=== PATIENT | male | born 1960 | race Caucasian/White ===

== ENCOUNTER → 2018-09-21 08:42 | Outpatient (CLI) | payer OTHER, SELFPAY ==
[2018-09-21 09:47] LABS: Add Manual Diff / Slide Review NO; Basophils Percent Auto 0.4 % (0-2); Eosinophils Percent Auto 4.2 % (2-4); Hematocrit 47.5 % (41-53); Hemoglobin 16.3 g/dL (13.5-17.5); Lymphocytes Percent Auto 21.8 % (25-40); Mean Corpuscular HGB Conc 34.4 % (30-36); Mean Corpuscular Hemoglobin 31.1 PG (26-34); Mean Corpuscular Volume 90.5 fL (80-100); Monocytes Percent Auto 15.2 % (3-14); Neutrophils Absolute Auto 3400 /uL (1500-7000); Neutrophils Percent Auto 58.4 % (50-75); Platelet Count 217 X10^3/uL (150-400); Red Blood Cell Count 5.25 X10^6/uL (4.5-5.9); Red Cell Distribution Width 14.2 % (11.6-14.8); White Blood Cell Count 5.9 X10^3/uL (4.5-11.0)
[2018-09-21 10:05] LABS: Alanine Aminotransferase 59 IU/L (21-72); Albumin 4.2 g/dL (3.5-5.0); Albumin Globulin Ratio 1.6 (1.0-2.8); Alkaline Phosphatase 79 U/L (38-126); Aspartate Aminotransferase 37 IU/L (17-59); Bilirubin Total 0.6 mg/dL (0.2-1.3); Blood Urea Nitrogen 20 mg/dL (9-20); Calcium 9.2 mg/dL (8.4-10.2); Carbon Dioxide 29 mmol/L (22-32); Chloride 101 mmol/L (98-107); Estimated Glomerular Filt Rate > 60.0 mL/min (>60); Globulin 2.6 g/dL (1.7-4.1); Glucose 102 mg/dL (80-110); HEMOLYSIS < 15 (0-50); Potassium 3.2 mmol/L (3.4-5.1); Sodium 144 mmol/L (137-145); Total Protein 6.8 g/dL (6.3-8.2); Uric Acid 3.9 mg/dL (3.5-8.5)
[2018-09-21 10:11] LABS: Erythrocyte Sedimentation Rate 1 MM/HR (0-15)
[2018-09-21 10:15] LABS: C-Reactive Protein Quant < 0.5 mg/dL (<1.0)
== END ==
PROVIDERS: Family Provider Specialist/Technologist Athletic Trainer; PCP Internal Medicine; Visit Provider Urology
DX: Z12.5 Encounter for screening for malignant neoplasm of prostate (principal); M10.9 Gout, unspecified
CPT/HCPCS: 36415; 80053; 84153; 84550; 85025; 85651; 86140

== ENCOUNTER → 2019-12-16 13:39 | Outpatient (CLI) | payer OTHER, SELFPAY ==
[2019-12-17 10:09] LABS: PSA Free % 31.1 % (.); PSA, Total 3.6 ng/mL (0.0-4.0)
== END ==
PROVIDERS: Family Provider Specialist/Technologist Athletic Trainer; Referring Provider Urology; Visit Provider Urology
DX: R97.20 Elevated prostate specific antigen [PSA] (principal)
CPT/HCPCS: 36415; 84153; 84154

== ENCOUNTER → 2020-06-09 11:05 | Outpatient (CLI) | payer OTHER, SELFPAY ==
[2020-06-09 12:28] LABS: Erythrocyte Sedimentation Rate 1 MM/HR (0-15)
[2020-06-09 13:08] LABS: Uric Acid 6.8 mg/dL (3.5-8.5)
[2020-06-09 13:11] LABS: C-Reactive Protein Quant < 0.5 mg/dL (<1.0)
== END ==
PROVIDERS: Family Provider Specialist/Technologist Athletic Trainer; PCP Internal Medicine; Referring Provider Physician Assistant Medical; Visit Provider Physician Assistant Medical
DX: M10.9 Gout, unspecified (principal)
CPT/HCPCS: 36415; 84550; 85651; 86140

== ENCOUNTER → 2021-01-09 09:37 | Outpatient (CLI) | payer OTHER, SELFPAY ==
[2021-01-10 14:12] LABS: PSA Free % 20.7 % (.); PSA, Total 5.4 ng/mL (0.0-4.0)
== END ==
PROVIDERS: Family Provider Specialist/Technologist Athletic Trainer; PCP Internal Medicine; Referring Provider Urology; Visit Provider Urology
DX: R97.20 Elevated prostate specific antigen [PSA] (principal)
CPT/HCPCS: 36415; 84153; 84154

== ENCOUNTER → 2021-06-07 11:50 | Outpatient (CLI) | payer OTHER, SELFPAY ==
[2021-06-07 12:51] LABS: Cholesterol 166 mg/dL (140-199); HDL Cholesterol 40 mg/dL (40-60); LDL Cholesterol Calculated 86 mg/dL (<100); Triglycerides 199 mg/dL (35-150)
== END ==
PROVIDERS: Family Provider Specialist/Technologist Athletic Trainer; PCP Internal Medicine; Referring Provider Internal Medicine; Visit Provider Internal Medicine
DX: I10 Essential (primary) hypertension (principal); E78.49 Other hyperlipidemia
CPT/HCPCS: 36415; 80061

== ENCOUNTER → 2021-08-06 12:54 | Outpatient (CLI) | payer OTHER, SELFPAY ==
[2021-08-06 14:19] LABS: Prostate Specific Antigen 6.43 ng/mL (0.10-4.00)
== END ==
PROVIDERS: Family Provider Specialist/Technologist Athletic Trainer; PCP Internal Medicine; Referring Provider Urology; Visit Provider Urology
DX: R97.20 Elevated prostate specific antigen [PSA] (principal)
CPT/HCPCS: 36415; 84153

== ENCOUNTER → 2022-01-19 10:52 | Outpatient (CLI) | payer OTHER, SELFPAY ==
[2022-01-20 12:12] LABS: PSA Free % 29.3 % (.); PSA, Total 4.6 ng/mL (0.0-4.0)
== END ==
PROVIDERS: Family Provider Specialist/Technologist Athletic Trainer; PCP Internal Medicine; Referring Provider Physician Assistant Medical; Visit Provider Physician Assistant Medical
DX: Z87.898 Personal history of other specified conditions (principal)
CPT/HCPCS: 36415; 84153; 84154

== ENCOUNTER → 2023-03-18 11:18 | Outpatient (CLI) | payer OTHER, SELFPAY ==
[2023-03-20 10:55] LABS: PSA Free % 30.9 % (.); PSA, Total 3.4 ng/mL (0.0-4.0)
== END ==
PROVIDERS: Family Provider Specialist/Technologist Athletic Trainer; PCP Internal Medicine; Referring Provider Physician Assistant Medical; Visit Provider Physician Assistant Medical
DX: Z87.898 Personal history of other specified conditions (principal)
CPT/HCPCS: 36415; 84153; 84154

== ENCOUNTER → 2023-04-28 08:39 | Outpatient (CLI) | payer OTHER, SELFPAY ==
[2023-04-28 10:44] LABS: Alanine Aminotransferase 34 IU/L (<50); Albumin 4.2 g/dL (3.5-5.0); Albumin Globulin Ratio 1.6 (1.0-2.8); Alkaline Phosphatase 81 U/L (38-126); Aspartate Aminotransferase 29 IU/L (17-59); BUN Creatinine Ratio 23.7 (6-22); Bilirubin Total 0.7 mg/dL (0.2-1.3); Blood Urea Nitrogen 23 mg/dL (9-20); Calcium 9.1 mg/dL (8.4-10.2); Carbon Dioxide 33 mmol/L (22-32); Chloride 98 mmol/L (98-107); Cholesterol 161 mg/dL (140-199); Estimated Glomerular Filt Rate > 60 mL/min (>60); Globulin 2.7 g/dL (1.7-4.1); Glucose 88 mg/dL (80-110); HDL Cholesterol 42 mg/dL (40-60); HEMOLYSIS < 15 (0-50); LDL Cholesterol Calculated 97 mg/dL (<100); Potassium 3.6 mmol/L (3.4-5.1); Sodium 137 mmol/L (137-145); Total Protein 6.9 g/dL (6.3-8.2); Triglycerides 109 mg/dL (35-150)
[2023-04-28 11:06] LABS: Add Manual Diff / Slide Review NO; Basophils Absolute Auto 0 /uL (0-100); Basophils Percent Auto 0.5 % (0-2); Eosinophils Absolute Auto 400 /uL (0-450); Eosinophils Percent Auto 6.1 % (2-4); Hematocrit 46.8 % (41-53); Hemoglobin 16.2 g/dL (13.5-17.5); Lymphocytes Absolute Auto 1900 /uL (1100-4500); Lymphocytes Percent Auto 27.5 % (25-40); Mean Corpuscular HGB Conc 34.7 % (30-36); Mean Corpuscular Hemoglobin 31.7 PG (26-34); Mean Corpuscular Volume 91.3 fL (80-100); Monocytes Absolute Auto 700 /uL (0-900); Monocytes Percent Auto 10.1 % (3-14); Neutrophils Absolute Auto 3900 /uL (1500-7000); Neutrophils Percent Auto 55.8 % (50-75); Platelet Count 257 X10^3/uL (150-400); Red Blood Cell Count 5.12 X10^6/uL (4.5-5.9)
== END ==
PROVIDERS: Family Provider Specialist/Technologist Athletic Trainer; PCP Internal Medicine; Referring Provider Internal Medicine; Visit Provider Internal Medicine
DX: I10 Essential (primary) hypertension (principal); E78.2 Mixed hyperlipidemia
CPT/HCPCS: 36415; 80053; 80061; 85025

== ENCOUNTER → 2023-07-24 10:11 | Outpatient (CLI) | payer MEDICARE, SELFPAY ==
[2023-07-24 12:03] LABS: Add Manual Diff / Slide Review NO; Basophils Absolute Auto 0 /uL (0-100); Basophils Percent Auto 0.6 % (0-2); Eosinophils Absolute Auto 400 /uL (0-450); Eosinophils Percent Auto 6.2 % (2-4); Hematocrit 47.6 % (41-53); Hemoglobin 16.4 g/dL (13.5-17.5); Lymphocytes Absolute Auto 1200 /uL (1100-4500); Mean Corpuscular HGB Conc 34.5 % (30-36); Mean Corpuscular Hemoglobin 31.4 PG (26-34); Mean Corpuscular Volume 91.1 fL (80-100); Monocytes Absolute Auto 700 /uL (0-900); Monocytes Percent Auto 10.2 % (3-14); Neutrophils Absolute Auto 4500 /uL (1500-7000); Platelet Count 263 X10^3/uL (150-400); Red Blood Cell Count 5.22 X10^6/uL (4.5-5.9); Red Cell Distribution Width 14.2 % (11.6-14.8); White Blood Cell Count 6.8 X10^3/uL (4.5-11.0)
[2023-07-24 12:20] LABS: Alanine Aminotransferase 37 IU/L (<50); Albumin 4.2 g/dL (3.5-5.0); Albumin Globulin Ratio 1.5 (1.0-2.8); Alkaline Phosphatase 75 U/L (38-126); Aspartate Aminotransferase 32 IU/L (17-59); BUN Creatinine Ratio 24.3 (6-22); Bilirubin Total 0.7 mg/dL (0.2-1.3); Blood Urea Nitrogen 27 mg/dL (9-20); Calcium 9.8 mg/dL (8.4-10.2); Carbon Dioxide 32 mmol/L (22-32); Chloride 99 mmol/L (98-107); Cholesterol 178 mg/dL (140-199); Estimated Glomerular Filt Rate > 60 mL/min (>60); Globulin 2.8 g/dL (1.7-4.1); Glucose 99 mg/dL (80-110); HDL Cholesterol 42 mg/dL (40-60); HEMOLYSIS < 15 (0-50); LDL Cholesterol Calculated 108 mg/dL (<100); Potassium 3.7 mmol/L (3.4-5.1); Sodium 139 mmol/L (137-145); Triglycerides 142 mg/dL (35-150)
[2023-07-27 18:03] LABS: ANA Screen, IFA Negative (.)
== END ==
PROVIDERS: Family Provider Specialist/Technologist Athletic Trainer; PCP Internal Medicine; Referring Provider Physician Assistant; Visit Provider Physician Assistant
DX: L30.9 Dermatitis, unspecified (principal)
CPT/HCPCS: 80053; 80061; 85025; 86038

== ENCOUNTER 2023-11-02 06:22 | Emergency (ER) | payer MEDICARE, SELFPAY ==
--- NOTE | 2023-11-02 | DI.MRI.S_ITS ---
PROCEDURE: MR ANGIO HEAD WO CON INDICATIONS: L eye lower visual field loss TECHNIQUE: Noncontrast axial 3-D vbxp-ro-uyxpru MR angiogram, with 3-dimensional maximum intensity projection (MIP) reformats of the internal carotid arteries and posterior circulation then performed. COMPARISON: [facility]ly [facility], MR, STROKE PROTOCOL (PNL), 02/10/2015, 11:24. [facility], CT, CT ANGIO HEAD AND NECK, 11/02/2023, 9:17. [facility], MR, MR HEAD/BRAIN WO CON, 11/02/2023, 10:17. FINDINGS: Image quality: Excellent. Anterior circulation: Intracranial internal carotid arteries demonstrate normal size and intraluminal flow signal. The flow within the paired anterior cerebral arteries is normal and symmetric. The flow within the middle cerebral arteries is normal and symmetric. The anterior communicating artery is seen. No stenoses, occlusions, or aneurysms. Posterior circulation: Visualized portions of the vertebral arteries demonstrate normal caliber, and join to form a normal appearing basilar artery. The flow within the posterior cerebral arteries is normal and symmetric. No stenoses, occlusions, or aneurysms. IMPRESSION: No significant intracranial arterial abnormality is seen. Note: Case discussed by telephone with Dr. Serna at 11:06 a.m. [place] time on November 02, 2023. Dictated by: Sly Singh M.D. on 11/02/2023 at 10:28 Approved by: Sly Singh M.D. on 11/02/2023 at 10:29
[2023-11-02 06:25] VITALS: BP 219/77; PULSE 61; RESP 18; TEMP 37; O2SAT 95; BMI 24.5
[2023-11-02 06:31] VITALS: BP 129/77; PULSE 65; RESP 14; O2SAT 93
--- NOTE | 2023-11-02 06:46 | ED_ITS ---
HPI - Eye Problem <Tiffany Guo DO - Last Filed: 11/02/23 17:58> General Chief complaint: Eye Problems Stated complaint: woke up with L lower eye blurred vision Time Seen by Provider: 11/02/23 06:33 History of Present Illness HPI Narrative: Patient is a 63-year-old history of hypertension PKU surgeries and other surgeries for built up scar tissue presenting today with left lower visual blurriness. He reports that he went to bed normal, woke up this morning around 430am and realized that the lower quadrant of his eye was blurry. He does not call it black or complete loss of vision. He denies any increasing flashing lights or floaters. He denies any pain. No numbness tingling or weakness. He reports that it is improving Related Data Allergies Allergy/AdvReac Type Severity Reaction Status Date / Time erythromycin base Allergy Unknown Unverified 01/14/18 12:36 [ERYTHROMYCIN BASE] Penicillins [PENICILLINS] Allergy Unknown Unverified 01/14/18 12:36 Patient History <Tiffany Guo DO - Last Filed: 11/02/23 17:58> Social History Smoking Status: Never smoker Smoking Status: Never smoker Exam <Tiffany Guo DO - Last Filed: 11/02/23 17:58> Initial Vital Signs Initial Vital Signs: Vital Signs Temperature 98.6 F 11/02/23 06:25 Pulse Rate 61 11/02/23 06:25 Respiratory Rate 18 11/02/23 06:25 Blood Pressure 219/77 H 11/02/23 06:25 Pulse Oximetry 95 11/02/23 06:25 Oxygen Delivery Method Room Air 11/02/23 06:25 GENERAL: Alert pleasant 63-year-old male HEENT: Head atraumatic,EOMI, pupils reactive, face symmetric, moist mucous membranes Left eye was treated with proparacaine, stained with fluorescein. No dye uptake. No foreign body. CARDIOVASCULAR: Regular rate and rhythm without murmurs, rubs or gallops. Pressure right eye 18 mm Hg, pressure left eye 17 mmHg RESPIRATORY: Breath sounds equal bilaterally, no wheezes rales or rhonchi. ABDOMEN: Soft, nontender. Normoactive bowel sounds all 4 quadrants. No guarding or rebound. EXTREMITIES: Normal range of motion, no clubbing or edema. Neurovascularly intact NEUROLOGICAL: Alert and oriented x4.Normal gait and speech. Cranial nerves II through XII grossly intact. SKIN: Warm, dry, no laceration, no petechiae, no rashes or lesions. <Cabrera Serna DO - Last Filed: 11/02/23 17:45> Initial Vital Signs Initial Vital Signs: Vital Signs Temperature 98.6 F 11/02/23 06:25 Pulse Rate 61 11/02/23 06:25 Respiratory Rate 18 11/02/23 06:25 Blood Pressure 219/77 H 11/02/23 06:25 Pulse Oximetry 95 11/02/23 06:25 Oxygen Delivery Method Room Air 11/02/23 06:25 Scores <Tiffany Guo DO - Last Filed: 11/02/23 17:58> NIH Stroke Scale Level of Conciousness: Alert, keenly responsive Ask month/age: Answers both questions correctly. Open/close eyes, close hand: Performs both tasks correctly Best gaze horizontal: Normal Visual trammell: No visual loss (blurry not loss) Facial palsy: Normal symetrical movement Left arm drift: No drift for full 10 sec Right arm drift: No drift for full 10 sec Left leg drift: No drift for full 5 sec Right leg drift: No drift for full 5 sec Limb ataxia: Absent Sensory on face/arms/legs: Normal, no sensory loss Best language: No aphasia, normal Dysarthria: Normal Extinction or inattention: No abnormality Total NIH Stroke scale score: 0 <Cabrera Serna DO - Last Filed: 11/02/23 17:45> NIH Stroke Scale Total NIH Stroke scale score: 0 Course <Tiffany Guo DO - Last Filed: 11/02/23 17:58> Orders Ordered: ED Orders 11/02/23 09:08 CT angio head and neck Stat MR head/brain wo con Stat Discontinued Medications Fluorescein Sodium (Fluorescein 1 Mg Strip) 1 mg EYE-BOTH NOW ONE Stop: 11/02/23 06:48 Last Admin: 11/02/23 06:56 Dose: 1 mg Documented By: HIMANSHU Proparacaine HCl (Proparacaine 0.5% Ophth [place]) 1 drops EYE-BOTH NOW ONE Stop: 11/02/23 06:48 Last Admin: 11/02/23 06:55 Dose: 1 drop Documented By: HIMANSHU Vital Signs Vital signs: Vital Signs - 8 hr 11/02/23 11:51 Pulse Rate 83 Respiratory Rate 16 Blood Pressure 135/73 Pulse Oximetry 97 Oxygen Delivery Method Room Air <Cabrera Serna DO - Last Filed: 11/02/23 17:45> Orders Ordered: ED Orders 11/02/23 09:08 CT angio head and neck Stat MR head/brain wo con Stat Discontinued Medications Fluorescein Sodium (Fluorescein 1 Mg Strip) 1 mg EYE-BOTH NOW ONE Stop: 11/02/23 06:48 Last Admin: 11/02/23 06:56 Dose: 1 mg Documented By: HIMANSHU Proparacaine HCl (Proparacaine 0.5% Ophth [place]) 1 drops EYE-BOTH NOW ONE Stop: 11/02/23 06:48 Last Admin: 11/02/23 06:55 Dose: 1 drop Documented By: HIMANSHU Vital Signs Vital signs: Vital Signs - 8 hr 11/02/23 11:51 Pulse Rate 83 Respiratory Rate 16 Blood Pressure 135/73 Pulse Oximetry 97 Oxygen Delivery Method Room Air MDM - Eye Problem <Tiffany Guo DO - Last Filed: 11/02/23 17:58> Lab Data 11/02/23 07:10 11/02/23 07:10 Labs: Lab Results 11/02/23 Range/Units 07:10 WBC 8.4 (4.5-11.0) X10^3/uL RBC 5.23 (4.5-5.9) X10^6/uL Hgb 16.5 (13.5-17.5) g/dL Hct 47.3 (41-53) % MCV 90.4 (80-100) fL MCH 31.6 (26-34) PG MCHC 34.9 (30-36) % RDW 14.2 (11.6-14.8) % Plt Count 238 (150-400) X10^3/uL Neut % (Auto) 71.7 (50-75) % Lymph % (Auto) 14.9 L (25-40) % [place] % (Auto) 7.7 (3-14) % Eos % (Auto) 5.2 H (2-4) % Baso % (Auto) 0.5 (0-2) % Neut # (Auto) 6000 (6793-1192) /uL Lymph # (Auto) 1200 (6426-6966) /uL [place] # (Auto) 600 (0-900) /uL Eos # (Auto) 400 (0-450) /uL Baso # (Auto) 0 (0-100) /uL Sodium 138 (137-145) mmol/L Potassium 3.7 (3.4-5.1) mmol/L Chloride 102 (98-107) mmol/L Carbon Dioxide 30 (22-32) mmol/L BUN 24 H (9-20) mg/dL Creatinine 1.02 (0.66-1.25) mg/dL Estimated GFR > 60 (>60) mL/min BUN/Creatinine Ratio 23.5 H (6-22) Glucose 102 (80-110) mg/dL Calcium 9.6 (8.4-10.2) mg/dL Total Bilirubin 0.6 (0.2-1.3) mg/dL AST 30 (17-59) IU/L ALT 36 (<50) IU/L Alkaline Phosphatase 78 (38-126) U/L Total Protein 6.9 (6.3-8.2) g/dL Albumin 4.0 (3.5-5.0) g/dL Globulin 2.9 (1.7-4.1) g/dL Albumin/Globulin Ratio 1.4 (1.0-2.8) MDM Narrative Medical decision making narrative: Patient is 63-year-old male with previous eye surgeries and scar tissue presents today with lower quadrant blurriness that is slowly improving but not yet gotten. Bedside ultrasound done by myself does not show any obvious retinal detachment pressure in both eyes is not elevated no obvious foreign body or eye injury identified with fluorescein exam. He has no focal deficits and NIH stroke scale of Further workup had been ordered signed out to Dr. Serna <Cabrera Serna, DO - Last Filed: 11/02/23 17:45> Lab Data Attestation: I reviewed the patient's lab results. Labs: Lab Results 11/02/23 Range/Units 07:10 WBC 8.4 (4.5-11.0) X10^3/uL RBC 5.23 (4.5-5.9) X10^6/uL Hgb 16.5 (13.5-17.5) g/dL Hct 47.3 (41-53) % MCV 90.4 (80-100) fL MCH 31.6 (26-34) PG MCHC 34.9 (30-36) % RDW 14.2 (11.6-14.8) % Plt Count 238 (150-400) X10^3/uL Neut % (Auto) 71.7 (50-75) % Lymph % (Auto) 14.9 L (25-40) % [place] % (Auto) 7.7 (3-14) % Eos % (Auto) 5.2 H (2-4) % Baso % (Auto) 0.5 (0-2) % Neut # (Auto) 6000 (4093-1724) /uL Lymph # (Auto) 1200 (8943-8044) /uL [place] # (Auto) 600 (0-900) /uL Eos # (Auto) 400 (0-450) /uL Baso # (Auto) 0 (0-100) /uL Sodium 138 (137-145) mmol/L Potassium 3.7 (3.4-5.1) mmol/L Chloride 102 (98-107) mmol/L Carbon Dioxide 30 (22-32) mmol/L BUN 24 H (9-20) mg/dL Creatinine 1.02 (0.66-1.25) mg/dL Estimated GFR > 60 (>60) mL/min BUN/Creatinine Ratio 23.5 H (6-22) Glucose 102 (80-110) mg/dL Calcium 9.6 (8.4-10.2) mg/dL Total Bilirubin 0.6 (0.2-1.3) mg/dL AST 30 (17-59) IU/L ALT 36 (<50) IU/L Alkaline Phosphatase 78 (38-126) U/L Total Protein 6.9 (6.3-8.2) g/dL Albumin 4.0 (3.5-5.0) g/dL Globulin 2.9 (1.7-4.1) g/dL Albumin/Globulin Ratio 1.4 (1.0-2.8) Imaging Data CTA - brain/neck: Radiologist's Impression: PROCEDURE: CT ANGIO HEAD AND NECK INDICATIONS: L eye lower visual field loss TECHNIQUE: After the administration of intravenous contrast, 1 mm thick sections acquired from the aortic arch through the [place] of [place]. 3-dimensional osdrqrc-xmzazdzre-qhaucjpmwk (MIP) and/or volume rendering reformats were acquired of the central intracranial vasculature and neck separately. For radiation dose reduction, the following was used: automated exposure control, adjustment of mA and/or kV according to patient size. COMPARISON: MR, STROKE PROTOCOL (PNL), 02/10/2015, 11:24. FINDINGS: Image quality: Diagnostic. BRAIN: CSF spaces: Ventricles are normal in size and shape. Basal cisterns are patent. No extra-axial fluid collections. Brain: No significant abnormality of the brain can be seen. Skull and face: Calvarium and facial bones appear intact, without suspicious lesions. Orbits appear normal. Sinuses: Sinuses and mastoids are clear. HEAD CT ANGIOGRAPHY: Anterior circulation: Intracranial internal carotid arteries are normal in size and flow. The flow within the paired anterior cerebral arteries is normal and symmetric. The flow within the middle cerebral arteries is normal and symmetric. The anterior communicating artery is seen. No aneurysms are seen. Posterior circulation: Visualized portions of the vertebral arteries demonstrate normal caliber, and join to form a normal appearing basilar artery. Flow within the posterior cerebral arteries is normal and symmetric. No aneurysms are seen. NECK CT ANGIOGRAPHY: Carotid system: Incidental note is made of a common origin of the right brachiocephalic artery and the left common carotid artery (bovine type arch). This is considered to be a developmental variant of no clinical consequence. The origins of the common carotid arteries appear patent. The common carotid arteries demonstrate normal caliber and courses. The bifurcation regions demonstrate atherosclerotic irregularity and calcification, yet without a hemodynamically significant stenosis. The more distal internal carotid arteries demonstrate normal caliber. Moderate tortuosity can be seen of the internal carotid arteries. Posterior circulation: The origins of the vertebral arteries both appear widely patent. The more superior extracranial portions of both vertebral arteries also demonstrate normal courses and calibers. They join to form a normal appearing basilar artery. Soft tissues: Visualized neck soft tissues demonstrate no suspicious abnormalities. Bones: No suspicious bony lesions. Visualized cervical spine appears normally aligned. Moderate cervical spine degenerative change can be seen, with posteriorly directed endplate osteophytes at C5-C6 and C6-C7. IMPRESSION: No significant intracranial arterial abnormality is seen. No significant abnormality is seen within the arteries of the neck. Additional findings: Moderate tortuosity of both internal carotid arteries Moderate cervical spine degenerative change Bovine type aortic branching pattern MRI brain: Radiologist's Impression: PROCEDURE: MR HEAD/BRAIN WO CON INDICATIONS: L eye lower visual field loss TECHNIQUE: Non-contrast axial T1 spin echo, axial T2 fast spin echo, sagittal and axial FLAIR, coronal T2 fast spin echo, axial gradient echo, axial diffusion and ADC through the brain. COMPARISON: [facility], MR, STROKE PROTOCOL (PNL), 02/10/2015, 11:24. [facility], MR, MR ANGIO HEAD WO CON, 11/02/2023, 10:17. [facility], CT, CT ANGIO HEAD AND NECK, 11/02/2023, 9:17. FINDINGS: Image quality: Excellent. CSF spaces: Ventricles appear symmetric in size and shape. Basal cisterns are patent. No extra-axial fluid collections. Brain: No intracranial bleeds or mass effects. There is age-appropriate cerebral volume loss. There are periventricular and deep white matter chronic small vessel ischemic changes, including involving the maría. Brainstem appears normal. Diffusion- weighted images show no acute infarct. No chronic ischemic insults. Normal intravascular flow voids are present. Skull and face: Calvarial bone marrow is normal in signal. Orbits are normal. Sinuses: Sinuses and mastoids are clear. IMPRESSION: No findings of acute or subacute infarction can be seen. No imaging explanation is found for this patient's presenting symptoms. Note is made of age-appropriate brain parenchymal volume loss and chronic small vessel ischemic changes. Note: Case discussed by telephone with Dr. Serna at 11:06 a.m. [place] time on November 02, 2023. [facility] Narrative Medical decision making narrative: Patient is 63-year-old male with previous eye surgeries and scar tissue presents today with lower quadrant blurriness that is slowly improving but not yet gotten. Bedside ultrasound done by myself does not show any obvious retinal detachment pressure in both eyes is not elevated no obvious foreign body or eye injury identified with fluorescein exam. He has no focal deficits and NIH stroke scale of Further workup had been ordered signed out to Dr. Kareem serna: Received turned over. Review patient's history and physical exam. Patient's CTA of the head and neck is unremarkable. MRI shows no signs of stroke. He actually reports that his symptoms have improved somewhat from their onset. No indication for admission to the hospital. Did discuss the findings of the scans with the patient. Advised that he contact his I provider for a follow-up. He was given return precautions. He expressed understanding and agreement. Discharge Plan Departure Patient Disposition: Home Clinical Impression: Changes in vision Activity Restrictions/Additional Instructions: I do recommend that you make contact with the eye doctor that you have seen in the past to have further evaluation of your left eye. Continue to take all of your medications as directed. I recommend that you take your blood pressure at home like we discussed. Return to the emergency department for new or worsening symptoms. Referrals: Gallo Mckinley MD [Primary Care Provider] - Stand Alone Forms: Patient Portal/API
[2023-11-02] MEDS: PROPARACAINE 0.5% OPHTH SOL 1 DROPS EYE-BOTH (06:55)
[2023-11-02] MEDS: FLUORESCEIN 1 MG STRIP EYE-BOTH (06:56)
[2023-11-02 07:21] LABS: Add Manual Diff / Slide Review NO; Basophils Absolute Auto 0 /uL (0-100); Basophils Percent Auto 0.5 % (0-2); Eosinophils Absolute Auto 400 /uL (0-450); Eosinophils Percent Auto 5.2 % (2-4); Hematocrit 47.3 % (41-53); Hemoglobin 16.5 g/dL (13.5-17.5); Lymphocytes Absolute Auto 1200 /uL (1100-4500); Lymphocytes Percent Auto 14.9 % (25-40); Mean Corpuscular HGB Conc 34.9 % (30-36); Mean Corpuscular Hemoglobin 31.6 PG (26-34); Mean Corpuscular Volume 90.4 fL (80-100); Monocytes Absolute Auto 600 /uL (0-900); Monocytes Percent Auto 7.7 % (3-14); Neutrophils Absolute Auto 6000 /uL (1500-7000); Neutrophils Percent Auto 71.7 % (50-75); Platelet Count 238 X10^3/uL (150-400); Red Blood Cell Count 5.23 X10^6/uL (4.5-5.9); Red Cell Distribution Width 14.2 % (11.6-14.8); White Blood Cell Count 8.4 X10^3/uL (4.5-11.0)
[2023-11-02 07:38] LABS: Alanine Aminotransferase 36 IU/L (<50); Albumin Globulin Ratio 1.4 (1.0-2.8); Alkaline Phosphatase 78 U/L (38-126); Aspartate Aminotransferase 30 IU/L (17-59); BUN Creatinine Ratio 23.5 (6-22); Bilirubin Total 0.6 mg/dL (0.2-1.3); Blood Urea Nitrogen 24 mg/dL (9-20); Calcium 9.6 mg/dL (8.4-10.2); Carbon Dioxide 30 mmol/L (22-32); Chloride 102 mmol/L (98-107); Estimated Glomerular Filt Rate > 60 mL/min (>60); Globulin 2.9 g/dL (1.7-4.1); Glucose 102 mg/dL (80-110); HEMOLYSIS < 15 (0-50); Potassium 3.7 mmol/L (3.4-5.1); Sodium 138 mmol/L (137-145); Total Protein 6.9 g/dL (6.3-8.2)
--- NOTE | 2023-11-02 09:08 | DI.MRI.S_ITS ---
PROCEDURE: MR HEAD/BRAIN WO CON INDICATIONS: L eye lower visual field loss TECHNIQUE: Non-contrast axial T1 spin echo, axial T2 fast spin echo, sagittal and axial FLAIR, coronal T2 fast spin echo, axial gradient echo, axial diffusion and ADC through the brain. COMPARISON: [facility], MR, STROKE PROTOCOL (PNL), 02/10/2015, 11:24. [facility], MR, MR ANGIO HEAD WO CON, 11/02/2023, 10:17. [facility], CT, CT ANGIO HEAD AND NECK, 11/02/2023, 9:17. FINDINGS: Image quality: Excellent. CSF spaces: Ventricles appear symmetric in size and shape. Basal cisterns are patent. No extra-axial fluid collections. Brain: No intracranial bleeds or mass effects. There is age-appropriate cerebral volume loss. There are periventricular and deep white matter chronic small vessel ischemic changes, including involving the maría. Brainstem appears normal. Diffusion-weighted images show no acute infarct. No chronic ischemic insults. Normal intravascular flow voids are present. Skull and face: Calvarial bone marrow is normal in signal. Orbits are normal. Sinuses: Sinuses and mastoids are clear. IMPRESSION: No findings of acute or subacute infarction can be seen. No imaging explanation is found for this patient's presenting symptoms. Note is made of age-appropriate brain parenchymal volume loss and chronic small vessel ischemic changes. Note: Case discussed by telephone with Dr. Serna at 11:06 a.m. [place] time on November 02, 2023. Dictated by: Sly Singh M.D. on 11/02/2023 at 10:26 Approved by: Sly Singh M.D. on 11/02/2023 at 10:27
--- NOTE | 2023-11-02 09:08 | DI.CT.S_ITS ---
PROCEDURE: CT ANGIO HEAD AND NECK INDICATIONS: L eye lower visual field loss TECHNIQUE: After the administration of intravenous contrast, 1 mm thick sections acquired from the aortic arch through the [place] of [place]. 3-dimensional rdjgwls-ygidzodvp-ugocmhzgyj (MIP) and/or volume rendering reformats were acquired of the central intracranial vasculature and neck separately. For radiation dose reduction, the following was used: automated exposure control, adjustment of mA and/or kV according to patient size. COMPARISON: MR, STROKE PROTOCOL (PN), 02/10/2015, 11:24. FINDINGS: Image quality: Diagnostic. BRAIN: CSF spaces: Ventricles are normal in size and shape. Basal cisterns are patent. No extra-axial fluid collections. Brain: No significant abnormality of the brain can be seen. Skull and face: Calvarium and facial bones appear intact, without suspicious lesions. Orbits appear normal. Sinuses: Sinuses and mastoids are clear. HEAD CT ANGIOGRAPHY: Anterior circulation: Intracranial internal carotid arteries are normal in size and flow. The flow within the paired anterior cerebral arteries is normal and symmetric. The flow within the middle cerebral arteries is normal and symmetric. The anterior communicating artery is seen. No aneurysms are seen. Posterior circulation: Visualized portions of the vertebral arteries demonstrate normal caliber, and join to form a normal appearing basilar artery. Flow within the posterior cerebral arteries is normal and symmetric. No aneurysms are seen. NECK CT ANGIOGRAPHY: Carotid system: Incidental note is made of a common origin of the right brachiocephalic artery and the left common carotid artery (bovine type arch). This is considered to be a developmental variant of no clinical consequence. The origins of the common carotid arteries appear patent. The common carotid arteries demonstrate normal caliber and courses. The bifurcation regions demonstrate atherosclerotic irregularity and calcification, yet without a hemodynamically significant stenosis. The more distal internal carotid arteries demonstrate normal caliber. Moderate tortuosity can be seen of the internal carotid arteries. Posterior circulation: The origins of the vertebral arteries both appear widely patent. The more superior extracranial portions of both vertebral arteries also demonstrate normal courses and calibers. They join to form a normal appearing basilar artery. Soft tissues: Visualized neck soft tissues demonstrate no suspicious abnormalities. Bones: No suspicious bony lesions. Visualized cervical spine appears normally aligned. Moderate cervical spine degenerative change can be seen, with posteriorly directed endplate osteophytes at C5-C6 and C6-C7. IMPRESSION: No significant intracranial arterial abnormality is seen. No significant abnormality is seen within the arteries of the neck. Additional findings: Moderate tortuosity of both internal carotid arteries Moderate cervical spine degenerative change Bovine type aortic branching pattern Any quantitative measurements of stenosis were performed using NASCET criteria. Dictated by: Sly Singh M.D. on 11/02/2023 at 8:40 Approved by: Sly Singh M.D. on 11/02/2023 at 8:46
[2023-11-02 11:51] VITALS: BP 135/73; PULSE 83; RESP 16; O2SAT 97
== END 2023-11-02 11:52 | disposition home or self-care (01) ==
PROVIDERS: Emergency Medicine; Emergency Provider Emergency Medicine; Family Provider Specialist/Technologist Athletic Trainer; PCP Internal Medicine
DX: H53.9 Unspecified visual disturbance (principal); R29.700 NIHSS score 0
CPT/HCPCS: 36415; 70496; 70498; 70544; 70551; 80053; 85025; 99284; Q9967

== ENCOUNTER → 2024-03-25 10:52 | Outpatient (CLI) | payer MEDICARE, SELFPAY ==
[2024-03-25 12:46] LABS: Prostate Specific Antigen 7.04 ng/mL (0.10-4.00)
== END ==
LOC: LAB 10:55
PROVIDERS: Family Provider Specialist/Technologist Athletic Trainer; PCP Internal Medicine; Referring Provider Physician Assistant Medical; Visit Provider Physician Assistant Medical
DX: Z87.898 Personal history of other specified conditions (principal)
CPT/HCPCS: 36415; 84153

== ENCOUNTER → 2024-05-04 08:34 | Outpatient (CLI) | payer MEDICARE, SELFPAY | PROVIDERS: Family Provider Specialist/Technologist Athletic Trainer; PCP Internal Medicine; Referring Provider Physician Assistant Medical; Visit Provider Physician Assistant Medical | DX: R97.20 Elevated prostate specific antigen [PSA] (principal) | CPT/HCPCS: 36415; 84153; 84154 ==

== ENCOUNTER → 2024-07-16 07:20 | Outpatient (CLI) | payer MEDICARE, SELFPAY ==
[2024-07-16 08:00] LABS: Add Manual Diff / Slide Review NO; Basophils Absolute Auto 0 /uL (0-100); Basophils Percent Auto 0.6 % (0-2); Eosinophils Absolute Auto 600 /uL (0-450); Eosinophils Percent Auto 8.3 % (2-4); Hemoglobin 16.4 g/dL (13.5-17.5); Lymphocytes Absolute Auto 1500 /uL (1100-4500); Mean Corpuscular HGB Conc 34.9 % (30-36); Mean Corpuscular Volume 91.6 fL (80-100); Monocytes Absolute Auto 700 /uL (0-900); Monocytes Percent Auto 9.7 % (3-14); Neutrophils Absolute Auto 4400 /uL (1500-7000); Neutrophils Percent Auto 60.4 % (50-75); Platelet Count 238 X10^3/uL (150-400); Red Blood Cell Count 5.13 X10^6/uL (4.5-5.9); White Blood Cell Count 7.2 X10^3/uL (4.5-11.0)
[2024-07-16 08:50] LABS: Alanine Aminotransferase 56 IU/L (<50); Albumin 3.9 g/dL (3.5-5.0); Albumin Globulin Ratio 1.5 (1.0-2.8); Alkaline Phosphatase 93 U/L (38-126); Aspartate Aminotransferase 42 IU/L (17-59); BUN Creatinine Ratio 26.5 (6-22); Bilirubin Total 1.2 mg/dL (0.2-1.3); Blood Urea Nitrogen 27 mg/dL (9-20); Calcium 9.6 mg/dL (8.4-10.2); Carbon Dioxide 28 mmol/L (22-32); Chloride 100 mmol/L (98-107); Cholesterol 131 mg/dL (140-199); Estimated Glomerular Filt Rate > 60 mL/min (>60); Globulin 2.6 g/dL (1.7-4.1); Glucose 86 mg/dL (80-110); HDL Cholesterol 47 mg/dL (40-60); HEMOLYSIS < 15 (0-50); LDL Cholesterol Calculated 67 mg/dL (<100); Potassium 3.5 mmol/L (3.4-5.1); Sodium 135 mmol/L (137-145); Total Protein 6.5 g/dL (6.3-8.2); Triglycerides 85 mg/dL (35-150)
== END ==
PROVIDERS: Family Provider Specialist/Technologist Athletic Trainer; PCP Internal Medicine; Referring Provider Internal Medicine; Visit Provider Internal Medicine
DX: I10 Essential (primary) hypertension (principal); M10.9 Gout, unspecified
CPT/HCPCS: 36415; 80053; 80061; 84550; 85025

== ENCOUNTER 2025-04-28 15:09 | Emergency (ER) | payer MEDICARE, SELFPAY ==
[2025-04-28 15:12] VITALS: BP 131/77; PULSE 77; RESP 18; TEMP 37; O2SAT 98; BMI 23.6
--- NOTE | 2025-04-28 16:06 | ED.MALEGU ---
HPI - Male Genitourinary <Luma Coreas PA-C - Last Filed: 04/28/25 19:16> General Chief complaint: Urogenital-Male Stated complaint: Prostate pain Time Seen by Provider: 04/28/25 16:00 Source: patient Mode of arrival: Ambulatory History of Present Illness HPI Narrative: Mr. Siegel is a very pleasant 64-year-old male with a past medical history of prostatomegaly, hypertension, gout, partial nephrectomy who presents to the emergency department for increased urinary urgency, frequency and suprapubic abdominal pain x a ?few days?. Patient states that he has been using Flomax once daily for the last year however acutely in the last few days he has been having increasing urgency and urinary frequency and he feels as though he is not able to empty his bladder. His urologist is with [facility] and he has an appointment next . He did go to the urology office yesterday and saw a nurse who performed a bladder scanner that was normal and a urinalysis that was normal. However patient continues to have constant suprapubic abdominal pain which is what brought him to the emergency department. He did have a PSA level checked that increased to 14 from 5. He denies burning with urination, hematuria, fevers, chills, chest pain, shortness of breath, flu-like symptoms, nausea, vomiting, diarrhea, constipation. He is not having any rectal pain. Related Data Home Medications ?Medication ?Instructions ?Recorded ?Confirmed allopurinol PO 12/04/23 12/04/23 diltiazem HCl PO 12/04/23 12/04/23 rosuvastatin PO 12/04/23 12/04/23 triamterene-hydrochlorothiazid PO 12/04/23 12/04/23 Previous Rx's ?Medication ?Instructions ?Recorded ketorolac 10 mg tablet 10 mg PO Q8H PRN pain #14 tabs 04/28/25 sulfamethoxazole 800 1 tab PO BID 7 days #14 tabs 04/28/25 mg-trimethoprim 160 mg tablet (Bactrim DS) Allergies Allergy/AdvReac Type Severity Reaction Status Date / Time erythromycin base Allergy Intermediate Nausea Verified 04/28/25 15:16 (ERYTHROMYCIN BASE) Penicillins (PENICILLINS) Allergy Intermediate Rash Verified 04/28/25 15:16 Quinolones Allergy Intermediate Swelling Verified 04/28/25 15:16 of Lip/Tongue/Throat Review of Systems <Luma Coreas PA-C - Last Filed: 04/28/25 19:16> Review of Systems ROS Unobtainable: All systems reviewed & are unremarkable except as noted in HPI and below Patient History <Luma Coresa PA-C - Last Filed: 04/28/25 19:16> Social History Smoking Status: Never smoker Smoking Status: Never smoker alcohol intake frequency: a few times a month Alcohol type: beer Exam <Luma Coreas PA-C - Last Filed: 04/28/25 19:16> Narrative Exam Narrative: GENERAL: 64 year old patient appears stated age. Well-developed patient, in no acute distress. HEAD: Atraumatic. Normocephalic. NECK: Trachea midline. Cervical ROM intact. CARDIOVASCULAR: Regular rate and rhythm. RESPIRATORY: ?Nonlabored respirations. ?Speaking in clear, full sentences. ?Clear to auscultation. Breath sounds equal bilaterally. No wheezes, rales, or rhonchi. ? GASTROINTESTINAL: Abdomen soft, nondistended, bowel sounds present. He is tenderness to palpation of the suprapubic region of the abdomen with no rebound or guarding. EXTREMITIES: No edema or joint tenderness. BACK: No CVA tenderness. NEURO: AOx3. ?Clear speech. ?Moves all 4 extremities appropriately. SKIN: No rash or erythema of visible areas Initial Vital Signs Initial Vital Signs: Vital Signs Temperature 98.6 F 04/28/25 15:12 Pulse Rate 77 04/28/25 15:12 Respiratory Rate 18 04/28/25 15:12 Blood Pressure 131/77 04/28/25 15:12 Pulse Oximetry 98 04/28/25 15:12 Oxygen Delivery Method Room Air 04/28/25 15:12 <Keke Leo MD - Last Filed: 04/30/25 19:13> Initial Vital Signs Initial Vital Signs: Vital Signs Temperature 98.6 F 04/28/25 15:12 Pulse Rate 77 04/28/25 15:12 Respiratory Rate 18 04/28/25 15:12 Blood Pressure 131/77 04/28/25 15:12 Pulse Oximetry 98 04/28/25 15:12 Oxygen Delivery Method Room Air 04/28/25 15:12 Course <Luma Coreas PA-C - Last Filed: 04/28/25 19:16> Orders Ordered: Discontinued Medications Ketorolac Tromethamine (Ketorolac 30 Mg/Ml Vial) 15 mg IV NOW ONE Stop: 04/28/25 16:15 Last Admin: 04/28/25 17:06 Dose: 15 mg Documented By: RB Trimethoprim/Sulfamethoxazole (Trimeth/Sulfa 160/800 (Ds) Tablet) 1 tab PO NOW ONE Stop: 04/28/25 18:33 Last Admin: 04/28/25 18:45 Dose: 1 tab Documented By: RB Vital Signs Vital signs: Vital Signs - 8 hr 04/28/25 15:12 04/28/25 18:37 Temperature 98.6 F 97.9 F Pulse Rate 77 54 L Respiratory Rate 18 18 Blood Pressure 131/77 131/62 Pulse Oximetry 98 97 Oxygen Delivery Method Room Air <Keke Leo MD - Last Filed: 04/30/25 19:13> Orders Ordered: Discontinued Medications Ketorolac Tromethamine (Ketorolac 30 Mg/Ml Vial) 15 mg IV NOW ONE Stop: 04/28/25 16:15 Last Admin: 04/28/25 17:06 Dose: 15 mg Documented By: RB Trimethoprim/Sulfamethoxazole (Trimeth/Sulfa 160/800 (Ds) Tablet) 1 tab PO NOW ONE Stop: 04/28/25 18:33 Last Admin: 04/28/25 18:45 Dose: 1 tab Documented By: RB Vital Signs Vital signs: Vital Signs - 8 hr 04/28/25 15:12 04/28/25 18:37 Temperature 98.6 F 97.9 F Pulse Rate 77 54 L Respiratory Rate 18 18 Blood Pressure 131/77 131/62 Pulse Oximetry 98 97 Oxygen Delivery Method Room Air MDM - Male Genitourinary <Luma Coreas PA-C - Last Filed: 04/28/25 19:16> Medical Records Attestation: I reviewed the patient's medical records. Lab Data 04/28/25 16:14 04/28/25 16:14 Labs: Lab Results 04/28/25 04/28/25 Range/Units 16:00 16:14 WBC 9.6 (4.5-11.0) X10^3/uL RBC 4.85 (4.5-5.9) X10^6/uL Hgb 15.6 (13.5-17.5) g/dL Hct 43.8 (41-53) % MCV 90.4 (80-100) fL MCH 32.2 (26-34) PG MCHC 35.6 (30-36) % RDW 13.6 (11.6-14.8) % Plt Count 222 (150-400) X10^3/uL Neut % (Auto) 73.0 (50-75) % Lymph % (Auto) 13.2 L (25-40) % [place] % (Auto) 7.9 (3-14) % Eos % (Auto) 5.0 H (2-4) % Baso % (Auto) 0.9 (0-2) % Neut # (Auto) 7000 (1903-7536) /uL Lymph # (Auto) 1300 (3173-6871) /uL [place] # (Auto) 800 (0-900) /uL Eos # (Auto) 500 H (0-450) /uL Baso # (Auto) 100 (0-100) /uL Sodium 139 (137-145) mmol/L Potassium 3.6 (3.4-5.1) mmol/L Chloride 104 (98-107) mmol/L Carbon Dioxide 29 (22-32) mmol/L BUN 23 H (9-20) mg/dL Creatinine 0.98 (0.66-1.25) mg/dL Estimated GFR > 60 (>60) mL/min BUN/Creatinine Ratio 23.5 H (6-22) Glucose 129 H (70-99) mg/dL Calcium 9.8 (8.4-10.2) mg/dL Total Bilirubin 0.8 (0.2-1.3) mg/dL AST 34 (17-59) IU/L ALT 55 H (<50) IU/L Alkaline Phosphatase 88 (38-126) U/L Total Protein 6.8 (6.3-8.2) g/dL Albumin 4.1 (3.5-5.0) g/dL Globulin 2.7 (1.7-4.1) g/dL Albumin/Globulin Ratio 1.5 (1.0-2.8) Urine RBC 0-1/hpf (0-5/HPF) Urine WBC 0-1/hpf (0-5/HPF) Ur Squamous Epith Cells 0-1 /hpf (0-5/HPF) Urine Bacteria Occasional (0-1) (None) Ur Culture Indicated? Cult not indicated Vol Urine Centrifuged 10ml (spun) Imaging Data CT scan - abdomen/pelvis: Radiologist's Impression: PROCEDURE: CT ABDOMEN PELVIS W CON INDICATIONS: suprapubic pain; prostate pain; urgency TECHNIQUE: After the administration of intravenous contrast, axial sections acquired from the lung bases to the pubic symphysis. Coronal and sagittal reformats were performed. For radiation dose reduction, the following was used: automated exposure control, adjustment of mA and/or kV according to patient size. COMPARISON: [facility], CT, CT CHEST ABD PELVIS W CON, 10/02/2016, 9:46. [facility], CT, CT IVP, 04/07/2024, 8:25. [facility], CT, CT ABDOMEN RENAL PROTOCOL, 04/14/2024, 15:43. FINDINGS: Image quality: Diagnostic. Lower Chest: A small hiatal hernia is incidentally noted. ABDOMEN: Liver: No solid mass. Gallbladder: No radiopaque gallstones or wall thickening. Biliary ducts: No biliary dilation. Pancreas: No ductal dilation. Spleen: Size is within normal limits. A rim calcified low-density lesion can be again seen within the mid spleen laterally. Adrenal Glands: No adrenal nodules. Kidneys and Ureters: At the inferior pole of the left kidney, there has been interval posttreatment change, without a ryan residual mass No hydronephrosis. No solid mass. No complex renal cystic lesion which requires follow up. Stomach and Bowel: Normal colonic caliber, without significant wall thickening. Colonic diverticulosis is seen, without findings of active diverticulitis. No dilated loops of small bowel are seen. Peritoneum: No abnormal intraperitoneal fluid. No free air. Ventral Wall: No significant ventral hernia. Abdominal Nodes: No retroperitoneal or mesenteric adenopathy by size criteria. Vessels: Aorta and inferior vena cava are normal in size. Dense atherosclerotic calcification can be seen throughout. PELVIS: Pelvic Organs: An enlarged, irregular appearing prostate can be seen, measuring 6.4 cm transversely. Bladder: Mild generalized bladder wall thickening can be seen. Pelvic Nodes: No enlarged lymph nodes. Miscellaneous: No inguinal hernias are seen. Bones: No aggressive osseous abnormality. Focal lower lumbar spine degenerative changes are seen. Milder degenerative changes are seen elsewhere. IMPRESSION: An enlarged, heterogeneous appearing prostate can be seen. Mild generalized bladder wall thickening can be seen, likely related to bladder outlet obstruction in a male patient of this age. Interval posttreatment at the inferior pole of the left kidney posteriorly, without ryan residual mass. Additional findings: Small hiatal hernia Stable rim calcified splenic lesion, unchanged from 2016 Focal lower lumbar spine degenerative change Dictated by: Sly Singh M.D. on 04/28/2025 at 16:46 Approved by: Sly Singh M.D. on 04/28/2025 at 16:53 [facility] Narrative Medical decision making narrative: 64-year-old male with a past medical history of prostatomegaly, hypertension, gout, partial nephrectomy who presents to the emergency department for increased urinary urgency, frequency and suprapubic abdominal pain x a ?few days?. Differential diagnosis includes but is not limited to urinary retention, cystitis, prostatomegaly, prostate malignancy, prostatitis, nephrolithiasis, ureterolithiasis, hydronephrosis, perirectal abscess, etc. On exam patient is in no acute distress, nontoxic-appearing, all vital signs normal limits. Abdomen is nondistended however he does have tenderness to palpation of the suprapubic region. We will obtain CBC, CMP, CT abdomen pelvis with IV contrast, urinalysis and postvoid residual bladder scan. We will treat pain with Toradol. Labs reveal normal WBC count 9.6, hemoglobin 15.6 hematocrit 43.8. Normal sodium 139 potassium 3.6, BUN 23 creatinine 0.98. Glucose 129. AST 55, remainder of LFTs within normal limits. UA reveals very minimal RBCs, WBCs, squamous epithelial cells and bacteria. Culture was ordered. Initial postvoid residual revealed about 300 mL however patient feels that he did not adequately empty his bladder before hand. We will reassess. Repeat 133. 1815: Patient's pain entirely resolved with the Toradol. CT reveals an enlarged heterogeneous appearing prostate, mild generalized bladder wall thickening can be seen. Given patient's history and elevated PSA, he understands the importance of following up with urology for further evaluation of potential malignancy versus BPH versus other. Given his symptoms, we will treat early UTI at an abundance of caution with TMP/SMX b.i.d. x7 days. At this time postvoid residual is 133, patient would like to avoid Adams catheter however he understands that if he has worsening urinary retention catheter would be necessary. First dose of antibiotic given in the ED. Discussed all results with the patient his , provided printed copy of the CT report. He was prescribed Toradol for pain and Bactrim for UTI. He has an appointment with his urologist next week. Discussed ED return precautions. He verbalized understanding of all information and is agreeable with the plan, ambulatory and stable for discharge home. <Keke Leo MD - Last Filed: 04/30/25 19:13> Lab Data Labs: Lab Results 04/28/25 04/28/25 Range/Units 16:00 16:14 WBC 9.6 (4.5-11.0) X10^3/uL RBC 4.85 (4.5-5.9) X10^6/uL Hgb 15.6 (13.5-17.5) g/dL Hct 43.8 (41-53) % MCV 90.4 (80-100) fL MCH 32.2 (26-34) PG MCHC 35.6 (30-36) % RDW 13.6 (11.6-14.8) % Plt Count 222 (150-400) X10^3/uL Neut % (Auto) 73.0 (50-75) % Lymph % (Auto) 13.2 L (25-40) % [place] % (Auto) 7.9 (3-14) % Eos % (Auto) 5.0 H (2-4) % Baso % (Auto) 0.9 (0-2) % Neut # (Auto) 7000 (9265-4078) /uL Lymph # (Auto) 1300 (9912-1898) /uL [place] # (Auto) 800 (0-900) /uL Eos # (Auto) 500 H (0-450) /uL Baso # (Auto) 100 (0-100) /uL Sodium 139 (137-145) mmol/L Potassium 3.6 (3.4-5.1) mmol/L Chloride 104 (98-107) mmol/L Carbon Dioxide 29 (22-32) mmol/L BUN 23 H (9-20) mg/dL Creatinine 0.98 (0.66-1.25) mg/dL Estimated GFR > 60 (>60) mL/min BUN/Creatinine Ratio 23.5 H (6-22) Glucose 129 H (70-99) mg/dL Calcium 9.8 (8.4-10.2) mg/dL Total Bilirubin 0.8 (0.2-1.3) mg/dL AST 34 (17-59) IU/L ALT 55 H (<50) IU/L Alkaline Phosphatase 88 (38-126) U/L Total Protein 6.8 (6.3-8.2) g/dL Albumin 4.1 (3.5-5.0) g/dL Globulin 2.7 (1.7-4.1) g/dL Albumin/Globulin Ratio 1.5 (1.0-2.8) Urine RBC 0-1/hpf (0-5/HPF) Urine WBC 0-1/hpf (0-5/HPF) Ur Squamous Epith Cells 0-1 /hpf (0-5/HPF) Urine Bacteria Occasional (0-1) (None) Ur Culture Indicated? Cult not indicated Vol Urine Centrifuged 10ml (spun) Discharge Plan Departure Patient Disposition: Home Clinical Impression: Enlarged prostate, Bladder outlet obstruction Instructions: DI for Urinary Retention in Men Activity Restrictions/Additional Instructions: Dear Robbin, Thank you for coming to the emergency department. Today you were evaluated for lower abdominal pain and difficulty fully emptying your bladder. Your bladder scan today revealed that you are retaining about 130 mL of urine which is not normal however you do not require an emergent catheter at this time. Your CT scan revealed thickening of the bladder wall and an enlargement of the prostate. Your urinalysis showed a small amount of bacteria, white blood cells, red blood cells so out of an abundance of caution we are starting you on antibiotics to treat a urinary tract infection. Please follow up with your urologist as soon as possible for further evaluation of your enlarged prostate. Please return to ER if you develop severe pain, inability to urinate, fevers, flank pain or any other concerns. Please follow up with your primary care doctor within the next 2-3 days for ER follow-up. (If you do not have a PCP you can call [phone]. ?to schedule an appointment with an [facility] Primary Care Provider) IF YOU DEVELOP ANY NEW OR WORSENING SYMPTOMS, RETURN TO THE ER! Please read the attached instructions, they highlight more specific treatments and interventions for you at home. Thank you for letting me participate in your care, Luma Coreas PA-C Prescriptions: New sulfamethoxazole-trimethoprim [Bactrim DS] 800-160 mg tablet 1 tab PO BID 7 Days Qty: 14 0RF ketorolac 10 mg tablet 10 mg PO Q8H PRN (Reason: pain) Qty: 14 0RF Rx Instructions: maximum total duration of 5 days from all oral, intranasal, or parenteral formulations No Action diltiazem HCl PO triamterene-hydrochlorothiazid PO allopurinol PO rosuvastatin PO Referrals: Gallo Mckinley MD [Primary Care Provider, Internal Medicine] Stand Alone Forms: Patient Portal/API ED Sign-out <Keke Leo MD - Last Filed: 04/30/25 19:13> [facility] I was immediately available in the department for consultation throughout this patient's visit. Keke Leo MD
--- NOTE | 2025-04-28 16:14 | DI.CT.S_ITS ---
PROCEDURE: CT ABDOMEN PELVIS W CON INDICATIONS: suprapubic pain; prostate pain; urgency TECHNIQUE: After the administration of intravenous contrast, axial sections acquired from the lung bases to the pubic symphysis. Coronal and sagittal reformats were performed. For radiation dose reduction, the following was used: automated exposure control, adjustment of mA and/or kV according to patient size. COMPARISON: [facility], CT, CT CHEST ABD PELVIS W CON, 10/02/2016, 9:46. [facility], CT, CT IVP, 04/07/2024, 8:25. [facility], CT, CT ABDOMEN RENAL PROTOCOL, 04/14/2024, 15:43. FINDINGS: Image quality: Diagnostic. Lower Chest: A small hiatal hernia is incidentally noted. ABDOMEN: Liver: No solid mass. Gallbladder: No radiopaque gallstones or wall thickening. Biliary ducts: No biliary dilation. Pancreas: No ductal dilation. Spleen: Size is within normal limits. A rim calcified low-density lesion can be again seen within the mid spleen laterally. Adrenal Glands: No adrenal nodules. Kidneys and Ureters: At the inferior pole of the left kidney, there has been interval posttreatment change, without a ryan residual mass No hydronephrosis. No solid mass. No complex renal cystic lesion which requires follow up. Stomach and Bowel: Normal colonic caliber, without significant wall thickening. Colonic diverticulosis is seen, without findings of active diverticulitis. No dilated loops of small bowel are seen. Peritoneum: No abnormal intraperitoneal fluid. No free air. Ventral Wall: No significant ventral hernia. Abdominal Nodes: No retroperitoneal or mesenteric adenopathy by size criteria. Vessels: Aorta and inferior vena cava are normal in size. Dense atherosclerotic calcification can be seen throughout. PELVIS: Pelvic Organs: An enlarged, irregular appearing prostate can be seen, measuring 6.4 cm transversely. Bladder: Mild generalized bladder wall thickening can be seen. Pelvic Nodes: No enlarged lymph nodes. Miscellaneous: No inguinal hernias are seen. Bones: No aggressive osseous abnormality. Focal lower lumbar spine degenerative changes are seen. Milder degenerative changes are seen elsewhere. IMPRESSION: An enlarged, heterogeneous appearing prostate can be seen. Mild generalized bladder wall thickening can be seen, likely related to bladder outlet obstruction in a male patient of this age. Interval posttreatment at the inferior pole of the left kidney posteriorly, without ryan residual mass. Additional findings: Small hiatal hernia Stable rim calcified splenic lesion, unchanged from 2016 Focal lower lumbar spine degenerative change Dictated by: Sly Singh M.D. on 04/28/2025 at 16:46 Approved by: Sly Singh M.D. on 04/28/2025 at 16:53
[2025-04-28 16:18] LABS: Culture Indicated Urine Cult Not Indicated
[2025-04-28 17:04] LABS: Add Manual Diff / Slide Review NO; Hematocrit 43.8 % (41-53); Hemoglobin 15.6 g/dL (13.5-17.5); Lymphocytes Absolute Auto 1300 /uL (1100-4500); Mean Corpuscular HGB Conc 35.6 % (30-36); Mean Corpuscular Hemoglobin 32.2 PG (26-34); Mean Corpuscular Volume 90.4 fL (80-100); Platelet Count 222 X10^3/uL (150-400)
[2025-04-28] MEDS: KETOROLAC 30 MG/ML VIAL 15 MG IV (17:06)
[2025-04-28 17:09] LABS: Alanine Aminotransferase 55 IU/L (<50); Albumin 4.1 g/dL (3.5-5.0); Albumin Globulin Ratio 1.5 (1.0-2.8); Alkaline Phosphatase 88 U/L (38-126); Blood Urea Nitrogen 23 mg/dL (9-20); Calcium 9.8 mg/dL (8.4-10.2); Carbon Dioxide 29 mmol/L (22-32); Chloride 104 mmol/L (98-107); Estimated Glomerular Filt Rate > 60 mL/min (>60); Globulin 2.7 g/dL (1.7-4.1); Glucose 129 mg/dL (70-99); HEMOLYSIS 22 (0-50); Potassium 3.6 mmol/L (3.4-5.1); Sodium 139 mmol/L (137-145); Total Protein 6.8 g/dL (6.3-8.2)
[2025-04-28 18:37] VITALS: BP 131/62; PULSE 54; RESP 18; TEMP 36.6; O2SAT 97
[2025-04-28] MEDS: TRIMETH/SULFA 160/800 (DS) TABLET 1 TAB PO (18:45)
== END 2025-04-28 18:52 | disposition home or self-care (01) ==
PROVIDERS: Emergency Provider Physician Assistant; Family Provider Specialist/Technologist Athletic Trainer; PCP Internal Medicine
DX: N40.1 Benign prostatic hyperplasia with lower urinary tract symptoms (principal); R33.8 Other retention of urine; R39.15 Urgency of urination; R35.0 Frequency of micturition; N32.0 Bladder-neck obstruction
CPT/HCPCS: 36415; 51798; 74177; 80053; 81015; 85025; 87086; 96374; 99284; J1885